=== PATIENT | male | born 1960 | race Caucasian/White ===

== ENCOUNTER 2016-08-07 08:20 | Emergency (ER) | payer OTHER, MEDICARE ==
[~2016-08-07] VITALS: Ht 157.5 cm; Wt 74.8 kg
[~2016-08-07 08:20] MED LIST: AMBIEN10 M1 PO; AUGMENTIN 875875 MG PO; CIPRO 500MG TA500 MG PO; DILAUDID2 MG PO; IBUPROFEN600 M1 PO; IBUPROFEN800 M1 PO; LIPITOR10 M1 PO; MIRTAZAPINE45 M1 PO; PERCOCET 325 MG1 TAB PO; TRAMADOL HYDROC50 MG PO
[2016-08-07 08:45] LABS: ABSOLUTE BASOPHIL COUNT 0 /CUMM (0.0-0.2); ABSOLUTE EOSINOPHIL COUNT 0.2 /CUMM (0.0-0.7); ABSOLUTE GRANULOCYTE CT 3.3 /CUMM (1.4-6.5); ABSOLUTE LYMPH COUNT 1.7 /CUMM (1.2-3.4); ABSOLUTE MONOCYTE COUNT 0.7 /CUMM (0.10-0.60); BASOPHIL % 0.2 % (0.0-2.0); GRANULOCYTE % 56.6 % (42.2-75.2); HEMATOCRIT 47.7 % (42-52); MEAN CORPUSCULAR HGB 30.2 PG (27.0-31.0); MEAN CORPUSCULAR HGB CONC 33.4 G/DL (33.0-37.0); MEAN CORPUSCULAR VOLUME 90.5 FL (80.0-94.0); MEAN PLATELET VOLUME 7.7 FL (7.4-10.4); PLATELET COUNT 200 /CUMM (130-400); RED BLOOD CELL CT 5.27 /CUMM (4.70-6.10); WHITE BLOOD CELL COUNT 5.9 /CUMM (4.8-10.8)
--- NOTE | 2016-08-07 09:25 | ED CARDIAC/CP/PALPITATIONS ---
History of Present Illness General Chief Complaint: General Adult Stated Complaint: "I THINK IM HAVING A HEART ATTACK" Source: patient Exam Limitations: no limitations Allergies Coded Allergies: NO KNOWN ALLERGIES (10/28/15) Reconcile Medications Atorvastatin Calcium (Lipitor) 10 MG TABLET 1 TAB PO DAILY CHOLESTEROL ( Reported) Mirtazapine 45 MG TABLET 1 TAB PO QPM SLEEP (Reported) Zolpidem Tartrate (Ambien) 10 MG TABLET 1 TAB PO QPM SLEEP (Reported) Triage Note: 56 Y/O MALE STATES "IM GETTING SYMPTOMS THAT IM AFRAID ARE LEADING TO A HEART ATTACK". STATES WEDNESDAY HE WAS HAVING "JOLTING" PAINS TO L FLANK/UNDER L AXILLA. TODAY, C/O "SORENESS" TO L RIBS. ALSO C/O FEELING "LIGHTHEADED" DENIES C/P. TAKEN FOR EKG. Triage Nurses Notes Reviewed? yes Onset: Abrupt Duration: day(s): (3), intermittent Timing: recent history Quality/Severity: moderate, severe Radiation: no radiation HPI: 48-year-old male comes into emergency room with complaints of left-sided rib pain/chest pain has been going on for the past 3 days intermittently. Sharp. Worse with range of motion. Denies any shortness of breath. Denies any vomiting fever chills cough. Nothing seems to make the symptoms better or worse. 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 Patient reports that he had a stress test done a couple months ago but does not know the results. Denies any other associated symptoms. (JEAN-PIERRE WHIPPLE) Vital Signs & Intake/Output Vital Signs & Intake/Output Vital Signs Date Time Temp Pulse Resp B/P B/P Pulse O2 O2 Flow FiO2 Mean Ox Delivery Rate 08/07 1433 97.4 65 15 123/77 96 Room Air Room Air 08/07 1232 97.2 67 18 122/76 99 Room Air 08/07 1025 80 18 128/74 97 Room Air 08/07 0914 Room Air Room Air 08/07 0830 97.5 93 18 149/86 98 Room Air Past History Travel History Traveled to [place] past 21 day No Medical History Any Pertinent Medical History? see below for history Neurological: NONE EENT: NONE Cardiovascular: hyperlipidemia Respiratory: NONE Gastrointestinal: INGUINAL HERNIA Hepatic: hepatitis B Renal: BALLOON BLADDER Musculoskeletal: NONE Psychiatric: anxiety, bipolar disease Endocrine: NONE Blood Disorders: NONE Cancer(s): bladder cancer DIRECT SUPPORT PROFESSIONAL CAREGIVER/Reproductive: NONE History of MRSA: No History of VRE: No History of CDIFF: No Surgical History Surgical History: bladder reconstruction with bowel, s/p bladder ca Psychosocial History Who do you live with Other (see notes) Services at Home None What is your primary language Belarusian Tobacco Use: Current Daily Use Daily Tobacco Use Amount/Type: => 5 Cigarettes daily Family History Family History, If Any: MOTHER GRAND FATHER Relation not specified for: FH: throat cancer FHx: brain cancer Hx Contributory? No (JEAN-PIERRE WHIPPLE) Review of Systems Review of Systems Constitutional: Reports: no symptoms. EENTM: Reports: no symptoms. Respiratory: Reports: no symptoms. Cardiovascular: Reports: see HPI. GI: Reports: no symptoms. Genitourinary: Reports: no symptoms. Musculoskeletal: Reports: no symptoms. Skin: Reports: no symptoms. Neurological/Psychological: Reports: no symptoms. Hematologic/Endocrine: Reports: no symptoms. Immunologic/Allergic: Reports: no symptoms. All Other Systems: Reviewed and Negative (JEAN-PIERRE WHIPPLE) Physical Exam Physical Exam General Appearance: well developed/nourished, alert, awake Head: atraumatic, normal appearance Eyes: Bilateral: normal appearance, EOMI. Ears, Nose, Throat: normal pharynx, normal ENT inspection, hearing grossly normal Neck: normal inspection, full range of motion Respiratory: normal breath sounds, no respiratory distress, chest wall tenderness left rib Cardiovascular: regular rate/rhythm Back: normal inspection Extremities: normal inspection Neurologic/Psych: awake, alert, oriented x 3, normal gait, normal mood/affect Skin: intact, normal color Core Measures ACS in differential dx? Yes Severe Sepsis Present: No Septic Shock Present: No (JEAN-PIERRE WHIPPLE) Progress Differential Diagnosis: AMI, aortic dissection, atrial fibrillation, costochondritis, hyperkalemia, hyperthyroid, musculoskeletal pain, myocarditis, pancreatitis, pericarditis, pneumonia, PSVT, PUD/GERD, PVCs/PACs, respiratory failure, rib fracture, sepsis, unstable angina, V-fib/V-Tach, WPW syndrome Diagnostic Imaging: Viewed by Me: Radiology Read. Discussed w/RAD: Radiology Read. Radiology Impression: SERVICE DATE: 08/07/16 EXAM TYPE: RAD - XRY-CHEST XRAY, PA AND LATERAL EXAMINATION: XR CHEST CLINICAL INFORMATION: Chest pain COMPARISON: Chest x-rays most recent prior dated 08/26/2013 TECHNIQUE: 2 views of the chest were obtained. FINDINGS: Stable cardiomediastinal silhouette. Prominence of the pulmonary markings compatible with chronic change. Subsegmental atelectasis left lower lung. No acute airspace opacity. Bony thorax is intact. Stable pectus deformity. IMPRESSION: No acute pulmonary disease. DICTATED BY: YENNI WOOD MD DATE/TIME DICTATED:08/07/16953 TIMBER SUPERVISOR:JODIE DATE/TIME TRANSCRIBED:08/07/16953 CONFIDENTIAL, DO NOT COPY WITHOUT APPROPRIATE AUTHORIZATION. Initial ED EKG: normal intervals, normal p-waves, normal QRS complex, normal sinus rhythm, rate (82) Repeat EKG: unchanged (JEAN-PIERRE WHIPPLE) Plan of Care: Orders Procedure Date/time Status Heart Healthy Diet 08/07 L Active TROPONIN LEVEL 08/07 1240 Complete EKG 08/07 1240 Active Add-on Test (ER Only) 08/07 0919 Active D-DIMER 08/07 0837 Complete TROPONIN LEVEL 08/07 0832 Complete COMPREHENSIVE METABOLIC PANEL 08/07 0832 Complete CBC WITHOUT DIFFERENTIAL 08/07 0832 Complete EKG 08/07 0831 Active URINALYSIS 08/07 0825 Complete Laboratory Tests 08/07/16 1244: Troponin I < 0.01 08/07/16 0844: Urinalysis HEAVY H, Urine Color YEL, Urine Clarity HAZY H, Urine pH 6.5, Ur Specific [place]ye 1.015, Urine Protein TRACE H, Urine Ketones NEG, Urine Nitrite NEG, Urine Bilirubin NEG, Urine Urobilinogen 0.2, Ur Leukocyte Esterase NEG, Ur Microscopic SEDIMENT EXAMINED, Urine RBC 5-10 H, Urine WBC PACKD H, Ur Epithelial Cells RARE, Urine Bacteria FEW H, Urine Mucus FEW, Urine Hemoglobin SMALL H, Urine Glucose NEG 08/07/16 0837: Anion Gap 11, Estimated GFR > 60, BUN/Creatinine Ratio 10.0, Glucose 83, Calcium 9.9, Total Bilirubin 0.8, AST 27, ALT 46, Alkaline Phosphatase 67, Troponin I < 0.01, Total Protein 6.6, Albumin 4.2, Globulin 2.4, Albumin/Globulin Ratio 1.8, D-Dimer < 200, CBC w Diff NO MAN DIFF REQ, RBC 5.27, MCV 90.5, MCH 30.2, RDW 13.0, MPV 7.7, Gran % 56.6, Lymphocytes % 28.8, Monocytes % 11.4 H, Eosinophils % 3.0, Basophils % 0.2, Absolute Granulocytes 3.3, Absolute Lymphocytes 1.7, Absolute Monocytes 0.7 H, Absolute Eosinophils 0.2, Absolute Basophils 0, PUBS MCHC 33.4 Departure Departure Disposition: HOME OR SELF CARE Condition: Stable Clinical Impression Primary Impression: Chest wall pain Referrals: JORGE LUIS ROSARIO MD (PCP/Family) Additional Instructions: Follow-up with Dr. Yates. Return to the emergency room if any concerns worsening symptoms. Please go over all results of today's visit with your primary care doctor. Contact your primary care doctor to let them know you were here in the emergency room. There may be nonspecific findings which may not be related to your visit today here in the emergency room but may require further evaluation and chronic monitoring by your primary care doctor. If you had a laceration today the chance of foreign body always remains. You should follow-up with your primary care doctor for recheck in 3-5 days for a wound check. If you had an x-ray done there is a chance that a fracture could have been missed on initial read and you should follow-up with your primary care doctor for repeat x-rays if symptoms persist. If your blood pressure was elevated here in the emergency room please have rechecked by her primary care doctor within the next 48 hours by your primary care doctor. If you were prescribed a narcotic here in the emergency room or any type of controlled substances you're not allowed to drive while taking this medication or operate any type of heavy machinery. Narcotics can make you feel lightheaded dizziness nausea and can cause constipation. You may need to cotton picker a stool softener. Thank you for choosing [facility] emergency room. Please return to the emergency room immediately if you have any other concerns worsening of symptoms. Departure Forms: Customer Survey General Discharge Information Comments 08/07/2016 3:27:[address] Yates was consult. Case was discussed with Dr. Bernard. Patient has a unchanged EKG and a repeat troponin which is negative. He had a recent stress test done a couple months ago which was normal. Chest pain is reproducible in the left chest wall. Patient clinically looks well. He does not appear to be an infected distress. Patient is going to follow-up with Dr. Yates in the office. (JEAN-PIERRE WHIPPLE) PA/SPANISH LITERATURE PROFESSOR Co-Sign Statement Statement: ED Attending supervision documentation- [] I saw and evaluated the patient. I have also reviewed all the pertinent lab results and diagnostic results. I agree with the findings and the plan of care as documented in the PA's/SPANISH LITERATURE PROFESSOR's documentation. [X] I have reviewed the ED Record and agree with the PA's/SPANISH LITERATURE PROFESSOR's documentation. [] Additions or exceptions (if any) to the PAs/SPANISH LITERATURE PROFESSOR's note and plan are summarized below: [] (BRIGIDO BARTHOLOMEW,JOANN Cross) Critical Care Note Critical Care Note Critical Care Time: non-applicable (JEAN-PIERRE WHIPPLE)
--- NOTE | 2016-08-07 09:58 | RADIOLOGY REPORT ---
EXAMINATION: XR CHEST CLINICAL INFORMATION: Chest pain COMPARISON: Chest x-rays most recent prior dated 08/26/2013 TECHNIQUE: 2 views of the chest were obtained. FINDINGS: Stable cardiomediastinal silhouette. Prominence of the pulmonary markings compatible with chronic change. Subsegmental atelectasis left lower lung. No acute airspace opacity. Bony thorax is intact. Stable pectus deformity. IMPRESSION: No acute pulmonary disease.
[2016-08-07 14:33] VITALS: BP 123/77
== END 2016-08-07 14:53 ==
LOC: ERH 08:20
PROVIDERS: Emergency Medicine
DX: R07.89 Other chest pain (principal)
CPT/HCPCS: 81001; 93005; 93010